=== PATIENT | male | born 1980 | race Caucasian/White ===

== ENCOUNTER 2021-03-08 11:31 | Emergency (ER) | payer SELFPAY ==
[2021-03-08] MEDS ORDERED: Zofran 4 MG/2 ML VIAL IV ONE (12:07)
[2021-03-08] MEDS ORDERED: Sodium Chloride 0.9% 1000 ML 1,000 ML IV STA (12:07)
[2021-03-08] MEDS ORDERED: MORPHINE SULFATE 4 MG INJ IV ONE (12:07)
[2021-03-08 12:11] LABS: Absolute Neutrophil Ct (ANC) 7.11 (1.4-6.9); BASOPHIL % 0.2 % (0.0-0.4); Basophil (Absolute #) 0.02 (0-0.4); Eosinophil (Absolute #) 0.22 (0-0.5); Hematocrit 48.6 % (42-50); Hemoglobin 16.2 gm/dl (12.5-18.0); Lymphocyte (Absolute #) 2.86 (1.0-4.6); Lymphocytes % 26.1 % (24.0-44.0); Mean Cell Volume 92.9 fl (78-100); Mean Corpuscular Hgb Concent. 33.3 g/dl (32-36); Mean Platelet Volume 9.1 fl (7.5-11.0); Monocyte (Absolute #) 0.75 (0.0-1.3); Monocytes % 6.8 % (0.0-12.0); Neutrophil % 64.9 % (36.0-66.0); Platelet Count 318 K/mm3 (150-450); Red Blood Count 5.23 M/mm3 (4.1-5.6); Red Cell Distribution Width 13.2 % (11.5-14.0)
[2021-03-08] MEDS ORDERED: Zofran 4 MG/2 ML VIAL ONE (12:15)
[2021-03-08] MEDS ORDERED: Sodium Chloride 0.9% 1000 ML 1,000 ML ONE (12:15)
[2021-03-08] MEDS ORDERED: MORPHINE SULFATE 4 MG INJ ONE (12:15)
[2021-03-08 12:26] LABS: ALBUMIN 4.5 g/dL (3.5-5.0); ALKALINE PHOSPHATASE 68 U/L (38-126); ANION GAP 15.3 MEQ/L (5-15); BLOOD UREA NITROGEN 17 mg/dL (9-20); CHLORIDE 97 mmol/L (98-107); Calcium 9.8 mg/dL (8.4-10.2); Carbon Dioxide 30 mmol/L (22-30); Creatinine 1 0.63 mg/dL (0.66-1.25); EST GLOMERULAR FILTRATION RATE > 60.0 ML/MIN; Glucose 247 mg/dL (74-106); LIPASE 93 U/L (23-300); Potassium 4.5 mmol/L (3.5-5.1); SGOT/AST 19 U/L (17-59); SGPT/ALT 16 U/L (0-50); SODIUM 137 mmol/L (137-145); Total Protein 6.9 g/dL (6.3-8.2)
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
[2021-03-08 13:56] LABS: Appearance CLEAR (CLEAR); Bilirubin NEGATIVE (NEGATIVE); Blood NEGATIVE Ery/ul (0-5); Glucose >=500 mg/dL (NEGATIVE); Ketones TRACE (NEGATIVE); Leukocyte Esterase NEGATIVE (NEGATIVE); Mucus SLIGHT /HPF (NEGATIVE); Nitrite NEGATIVE (NEGATIVE); Protein,Urine Dip 30 (Negative); Specific Gravity 1.021 (1.005-1.025); Urobilinogen NEGATIVE mg/dL (0-1); WBC 0-2 /HPF (0-5)
[2021-03-08 14:36] VITALS: O2SAT 98
[2021-03-08 14:37] VITALS: BP 149/101; PULSE 72
--- NOTE | 2021-03-08 18:42 | XRAY ---
Indication: Bilateral flank pain. Multiple contiguous axial images obtained through the abdomen and pelvis without contrast. Comparison: None. Lung bases are clear. Heart not enlarged. Noncontrasted stomach and bowel loops appear nonobstructed. Several jejunal bowel loops demonstrates circumferential wall thickening as seen with enteritis. Normal appendix. Mild diffuse scattered colonic fecal debris throughout. No free fluid/air. Nonobstructing left renal punctate calculus. Remaining liver, gallbladder, pancreas, spleen, adrenal glands, kidneys, ureters, and bladder are unremarkable for noncontrast exam. Mild scattered aortoiliac calcifications without AAA. Osseous structures intact. No ventral or inguinal hernias. Impression: 1. Jejunal bowel wall thickening. Rule out enteritis. 2. Diffuse fecal stasis. 3. Nonobstructing left renal micro-calculus. Comment: Preliminary interpretation was made by [facility]. No critical discrepancy.
== END 2021-03-08 14:41 | disposition home or self-care (01) ==
LOC: ED 11:31
DX: R10.9 Unspecified abdominal pain (principal); K52.9 Noninfective gastroenteritis and colitis, unspecified
CPT/HCPCS: 36000; 36415; 74176; 80053; 81001; 83605; 83690; 85025; 96374; 96375; 99284; J2270; J2405